=== PATIENT | female | born 1965 | race Caucasian/White ===

== ENCOUNTER → 2018-02-10 11:43 | Outpatient (CLI) | payer OTHER, SELFPAY ==
[2018-02-10 14:00] LABS: Cholesterol 139 mg/dL (200); High Density Lipoprotein 42 mg/dL; Triglycerides 183 mg/dL; Very Low Density Lipoprotein 37 mg/dL (5-40)
[2018-02-10 14:06] LABS: Hemoglobin A1c 8.2 % (4.2-6.3)
== END ==
PROVIDERS: Family Provider Family Medicine; PCP Family Medicine; Visit Provider Family Medicine
DX: E11.9 Type 2 diabetes mellitus without complications (principal); E78.00 Pure hypercholesterolemia, unspecified
CPT/HCPCS: 36415; 80061; 83036

== ENCOUNTER → 2019-03-25 10:42 | Outpatient (CLI) | payer OTHER, SELFPAY ==
[2019-03-25 09:59] VITALS: BMI 30.4
[2019-03-25 13:17] LABS: AST(SGOT) 43 U/L (15-37); Alanine Aminotransfer ALT/SGPT 59 U/L (13-56); Albumin, Serum 4.2 g/dL (3.2-5.0); Alkaline Phosphatase 82 U/L (45-117); Anion Gap 4 (5-15); BUN 9 mg/dL (7-18); BUN/Creat Ratio 10.5 RATIO (10-20); Calcium,Total 9.6 mg/dL (8.5-10.1); Chloride 103 mmol/L (98-107); Cholesterol 132 mg/dL (200); Creatinine, Serum 0.86 mg/dL (0.55-1.02); EST Glomerular Filtration Rate 73 mL/min (>60); Est Glom Filt Rate - Afr Amer 88 mL/min (>60); Glucose 184 mg/dL (74-106); High Density Lipoprotein 41 mg/dL; Potassium 4.3 mmol/L (3.5-5.1); Protein, Total 8.2 g/dL (6.4-8.2); Sodium Level 138 mmol/L (136-145); Triglycerides 191 mg/dL; Very Low Density Lipoprotein 38 mg/dL (5-40)
[2019-03-25 13:21] LABS: Microalbumin,Random Urine 10.4 mg/L (NO RANGE EST.); Microalbumin:Creatinine Ratio 32.7 mg/g CRE (<30 mg/g CRE)
== END ==
PROVIDERS: Family Provider Family Medicine; PCP Family Medicine; Visit Provider Family Medicine
DX: I10 Essential (primary) hypertension (principal); E78.00 Pure hypercholesterolemia, unspecified; E11.9 Type 2 diabetes mellitus without complications
CPT/HCPCS: 36415; 80053; 80061; 82043; 82570

== ENCOUNTER → 2020-05-11 16:12 | Outpatient (CLI) | payer OTHER, SELFPAY ==
[2020-05-11 15:39] VITALS: BMI 30.1
[2020-05-11 17:32] LABS: ALB/GLOB Ratio 1.1 RATIO (0.9-2.4); AST(SGOT) 47 U/L (15-37); Alanine Aminotransfer ALT/SGPT 75 U/L (13-56); Albumin, Serum 4.2 g/dL (3.2-5.0); Alkaline Phosphatase 69 U/L (45-117); Anion Gap 10 (5-15); BUN 9 mg/dL (7-18); BUN/Creat Ratio 12.3 RATIO (10-20); Calcium,Total 9.6 mg/dL (8.5-10.1); Chloride 101 mmol/L (98-107); Cholesterol 165 mg/dL (200); Creatinine, Serum 0.73 mg/dL (0.55-1.02); EST Glomerular Filtration Rate 88 mL/min (>60); Est Glom Filt Rate - Afr Amer 106 mL/min (>60); Globulin 3.8 g/dL (2.2-4.2); Glucose 157 mg/dL (74-106); High Density Lipoprotein 46 mg/dL; Sodium Level 140 mmol/L (136-145); Triglycerides 208 mg/dL; Very Low Density Lipoprotein 42 mg/dL (5-40)
[2020-05-11 18:09] LABS: Microalbumin,Random Urine 17.7 mg/L (NO RANGE EST.); Microalbumin:Creatinine Ratio 33.8 mg/g CRE (<30 mg/g CRE)
== END ==
PROVIDERS: PCP Family Medicine; Referring Provider Family Medicine; Visit Provider Family Medicine
DX: I10 Essential (primary) hypertension (principal)
CPT/HCPCS: 36415; 80053; 80061; 82043; 82570

== ENCOUNTER → 2020-08-01 09:11 | Outpatient (CLI) | payer OTHER, SELFPAY ==
[2020-05-11 15:39] VITALS: BMI 30.1
--- NOTE | 2020-08-01 09:13 | US_ITS ---
STUDY: ABDOMINAL ULTRASOUND - RIGHT UPPER QUADRANT REASON FOR VISIT: Female, 55 years old patient with elevated liver enzymes. TECHNIQUE: Ultrasound evaluation of the right upper quadrant was performed with real-time and static gonzalez-scale imaging. TECHNICAL QUALITY: Adequate. COMPARISON: Prior comparison studies are not available for review at this time. FINDINGS: Liver: The liver measures 18.8 cm. There is increased echogenicity consistent with fatty infiltration. The bile ducts are within normal limits. There is hepatic color flow. The direction of portal flow is hepatopetal. There is no demonstrated mass lesion. Gallbladder: Normal distended gallbladder. The gallbladder wall measures mm. There is a negative sonographic Lee''s sign. There is no pericholecystic fluid. There are no gallstones. Common Bile Duct (C.B.D.): The common bile duct measures 5 mm. Pancreas: Normal size of the head, body and tail of the pancreas. There is normal echogenicity of the pancreas. There is no demonstrated pancreatic mass or cyst. Right Kidney: Normal size of the right kidney. The right kidney measures 10.3 x 5.1 x 6.2 cm. Normal renal cortex. The right cortex measures 1.6 cm. There is no demonstrated renal mass or cyst. There is no right hydronephrosis. US/Liver IMPRESSION: 1. Echogenic liver suggests possible hepatic steatosis. 2. Common bile duct is at the upper limits of normal. Electronically Signed: Kenya Bautista MD at 2:14 EST , Service support ,
== END ==
PROVIDERS: PCP Family Medicine; Referring Provider Family Medicine; Visit Provider Family Medicine
DX: R74.8 Abnormal levels of other serum enzymes (principal)
CPT/HCPCS: 76705

== ENCOUNTER → 2022-01-23 | Outpatient (CLI) | payer OTHER, SELFPAY ==
[2022-01-23 15:37] LABS: ALB/GLOB Ratio 1.1 RATIO (0.9-2.4); AST(SGOT) 37 U/L (15-37); Alanine Aminotransfer ALT/SGPT 56 U/L (13-56); Albumin, Serum 4.1 g/dL (3.2-5.0); Alkaline Phosphatase 63 U/L (45-117); Anion Gap 10 (5-15); BUN 9 mg/dL (7-18); BUN/Creat Ratio 11.9 RATIO (10-20); Calcium,Total 9.9 mg/dL (8.5-10.1); Chloride 104 mmol/L (98-107); Cholesterol 164 mg/dL (200); Creatinine, Serum 0.76 mg/dL (0.55-1.02); EST Glomerular Filtration Rate 83 mL/min (>60); Est Glom Filt Rate - Afr Amer 101 mL/min (>60); Globulin 3.9 g/dL (2.2-4.2); Glucose 156 mg/dL (74-106); High Density Lipoprotein 41 mg/dL; Potassium 3.6 mmol/L (3.5-5.1); Sodium Level 141 mmol/L (136-145); Triglycerides 278 mg/dL; Very Low Density Lipoprotein 56 mg/dL (5-40)
[2022-01-23 15:44] LABS: Creatinine, Urine (random) < 13.00 mg/dL (NO RANGE EST.); Microalbumin,Random Urine 7.1 mg/L (NO RANGE EST.)
== END | disposition home or self-care (01) ==
LOC: BIMLAB 13:43
PROVIDERS: PCP Family Medicine; Visit Provider Family Medicine
DX: E78.00 Pure hypercholesterolemia, unspecified (principal); E11.9 Type 2 diabetes mellitus without complications
CPT/HCPCS: 36415; 80053; 80061; 82043; 82570

== ENCOUNTER 2022-07-22 11:57 | Emergency (ER) | payer OTHER, SELFPAY ==
[2022-07-22 11:58] VITALS: BP 188/70; PULSE 100; RESP 18; TEMP 36.4; O2SAT 98; BMI 28.8
--- NOTE | 2022-07-22 12:27 | RAD_ITS ---
STUDY: X-RAY - RIGHT SHOULDER REASON FOR EXAM: Female, 57 years old. fall, injury TECHNIQUE: 3 view(s) of the shoulder. COMPARISON: None. FINDINGS: Normal glenohumeral articulation. There is degenerative arthrosis of the acromioclavicular joint without inferior osseous spur formation. Normal acromion. Normal humeral head and visualized proximal humerus. The soft tissue structures are unremarkable. Normal visualized pulmonary apex. RAD/Shoulder min 2 Views IMPRESSION: Mild degenerative changes. There is no acute displaced fracture or dislocation. Electronically Signed: Quyen Danielle MD at 13:15 EST Reading Location ID and State: , Service support ,
--- NOTE | 2022-07-22 12:28 | EDS_ITS ---
HPI HPI - Fall History of Present Illness Chief Complaint: Fall Detail of Chief Complaint: Fall with right shoulder and right foot injury Informant: patient Narrative Narrative: Patient presents the emergency department after sustaining a fall this morning. Patient states that she was stepping out of the tub and try to avoid her cat when she missed the rug and stepped on the tile floor slipping causing her to f all. Patient fell onto her right shoulder and jammed her right foot and toes. Patient states she bumped her head on the tub but there is no loss of consciousness and she denies headache. She is not noticed any trauma to her head. She denies neck pain. She denies recent illness. Patient is left-hand dominant. [facility] Medical History (Updated 07/22/22 @ 14:[address] Peg Driver DO) Diabetes High blood pressure High cholesterol Sleep apnea Home Medications C-pap supplies #1 ea 06/04/18 [Rx Last Taken Unknown] blood sugar diagnostic (OneTouch Ultra Blue Test Strip) #50 ea 08/10/20 [Rx Last Taken Unknown] rosuvastatin 10 mg tablet 10 mg PO DAILY #90 tabs 09/29/21 [Rx Last Taken Unknown] amlodipine 5 mg-benazepril 20 mg capsule 1 cap PO DAILY blood pressure #90 caps 12/22/21 [Rx Last Taken Unknown] hydrochlorothiazide 12.5 mg tablet See Rx Instructions .Route .COMPLEX #90 tabs 01/23/22 [Rx Last Taken Unknown] sitagliptin phos 50 mg-metformin ER 1,000 mg tablet,extend rel 24h mp (Janumet XR) 2 tab PO DAILY #180 tabs 03/19/22 [Rx Last Taken Unknown] Allergy/AdvReac Type Severity Reaction Status Date / Time adhesive tape Allergy Intermediate Rash Verified 07/22/22 11:59 Family History Father Alcohol abuse Myocardial infarction Mother Breast cancer Colon cancer Hypertension Brother Heart disease Hypertension Surgical History History of appendectomy History of hysterectomy Social History Smoking Status: Never smoker alcohol intake: never substance use type: does not use what type of physical activity do you participate in: none ROS ROS ED Review of Systems ROS Unobtainable: other Constitutional Constitutional ED: Reports lethargy; Denies chills, fever(s), sweats or weight loss Eyes Eyes: Denies blurry vision, change in vision or diplopia ENT ENT ED: Denies rhinorrhea or sore throat Cardiovascular Cardiovascular: Denies chest pain, orthopnea or racing heartbeat Respiratory/Chest Respiratory/Chest: Denies cough, dyspnea, dyspnea on exertion, orthopnea or sputum Gastrointestinal Gastrointestinal: Denies abdominal pain, diarrhea, nausea or vomiting Genitourinary Genitourinary ED: Denies dysuria, hematuria or urinary frequency Musculoskeletal Musculoskeletal: Reports other Details: Right shoulder pain/injury, right foot pain/injury ; Denies arthralgias, back pain, myalgias or neck pain Integumentary Denies abscess, Abrasions or rash Neurologic Neurologic: Denies headache(s) or weakness Psychiatric Psychiatric: Denies anxiety, depression or suicidal thoughts Endocrine Endocrinology: Denies polydipsia, polyphagia or polyuria Hematologic/Lymphatic Hematologic/Lymphatic: Denies easy bleeding, easy bruising or lymphadenopathy Allergic/Immunologic Allergic/Immunologic ED: Denies mouth swelling, tongue swelling or urticaria EXAM Physical Exam Const Vital Signs: 07/22/22 11:58 07/22/22 12:11 Temperature 97.5 F L Temperature Source Temporal Pulse Rate 100 Respiratory Rate 18 Respiratory Effort Normal Non-Labored Blood Pressure 188/70 H Blood Pressure Mean 109 Pulse Ox 98 Oxygen Delivery Method Room Air Positive well nourished and well developed General Appearance ED: well developed and NAD HEENT Reports TM's clear and moist mucous membranes normocephalic and atraumatic; Negative for trauma or tenderness Tympanic Membrane ED: Yes TM's clear Eyes PERRL and EOMs intact bilaterally General Eye ED: Negative for pale conjunctiva or scleral icterus Neck no lymphadenopathy, supple and no JVD General: Negative for tenderness Chest Wall inspection of chest normal and palpation of chest normal Chest: Negative for tenderness Resp normal respiratory effort and clear to auscultation bilaterally Effort and Inspection: Negative for respiratory distress or pain with movement Auscultation: Negative for rhonchi, wheezes or diminished lung sounds Cardio regular rate, regular rhythm, S1 normal heart sound, S2 normal heart sound and no murmurs Peripheral Pulses: pulses 2+ throughout GI normal to inspection, nondistended, normoactive bowel sounds, soft to palpation, non-tender, non-distended and no masses Back/Spine no CVA tenderness and no thoracic nor lumbar tenderness Extremity Extremity Narrative: Right shoulder-no sulcus sign noted. There is no ecchymosis or bruising noted. Patient has pain with range of motion of the glenohumeral joint which is diminished. Patient has some tenderness palpation over the proximal humerus. Neurovascular intact distally. Right foot-patient has tenderness diffusely over the fourth and fifth toes and distal fourth and fifth metatarsals. There is no ecchymosis or bruising or obvious deformity. She is neurovascular intact. General Extremety ED: Negative for edema General Extremity: Negative for edema Neuro oriented x3, CN's II-XII intact bilaterally, no sensory deficits noted and gait normal Sensorium / Orientation: awake, alert, oriented to person, oriented to place and oriented to time Motor Exam: strength 5/5 throughout and strength abnormal Psych mental status grossly normal Skin no rashes or lesions noted and no wounds MDM MDM MDM Narrative Medical decision making narrative: Patient did not want thing for pain in the emergency department. Patient was given a sling. Patient advised to follow-up with her primary care physician 5 to 7 days. Radiography Diagnostic Testing: Clinical Impression(s) from Imaging Studies Shoulder X-Ray 07/22/22 12:27 IMPRESSION: Mild degenerative changes. There is no acute displaced fracture or dislocation. Electronically Signed: Quyen Danielle MD at 13:15 EST Reading Location ID and State: , Service support , Foot X-Ray 07/22/22 12:45 IMPRESSION: Degenerative changes. There is no acute displaced fracture or dislocation. Electronically Signed: Quyen Danielle MD at 13:14 EST Reading Location ID and State: , Service support , Three-view x-rays of right foot obtained interpreted by myself as no acute fractures. Radiology in agreement. 2 view x-rays of right shoulder obtained interpreted by myself as no acute fractures or dislocations and radiology in agreement. Discharge Plan Triage Chief Complaint: Fall ED Provider: Peg Driver Dx/Rx/DC Orders Clinical Impression: Fall, Contusion of right shoulder, Right foot sprain Instructions: ED Foot Sprain, ED Shoulder Contusion Prescriptions: No Action (DME) C-pap supplies Qty: 1 0RF Dose Instruction: As directed Rx Instructions: As directed (DME) OneTouch Ultra Blue Test Strip Strip See Rx Instructions .ROUTE .MEDSUPPLY Qty: 50 3RF Rx Instructions: Three times a day hydrochlorothiazide 12.5 mg tablet See Rx Instructions .ROUTE .COMPLEX Qty: 90 3RF Dose Instruction: take 1 tablet by mouth every morning Rx Instructions: take 1 tablet by mouth every morning rosuvastatin 10 mg tablet 10 mg PO DAILY Qty: 90 3RF amlodipine-benazepril 5-20 mg capsule 1 cap PO DAILY Qty: 90 3RF Janumet XR 50-1,000 mg tablet, ER multiphase 24 hr 2 tab PO DAILY Qty: 180 3RF Primary Care Provider: Stone Rosario Referrals: Stone Rosario, [Primary Care Provider] - 5-7 Days Disposition Disposition: Home, Self Care
--- NOTE | 2022-07-22 12:45 | RAD_ITS ---
STUDY: X-RAY - RIGHT FOOT CLINICAL: Female, 57 years old. fall TECHNIQUE: 3 view(s) of the foot. COMPARISON: None. FINDINGS: There is a large enthesophyte involving the posterior superior calcaneus at the site of insertion of the Achilles tendon and moderate plantar calcaneus spur formation. Mild arthropathy of the visualized subtalar, talonavicular, calcaneocuboid, tarsal and tarsometatarsal articulations. Normal metatarsi. Normal metatarsophalangeal joint of the great toe. Normal tibial and fibular sesamoid bones. Normal interphalangeal joint of the great toe. Normal phalanges of the great toe. Normal second through fifth metatarsophalangeal joints. Normal interphalangeal joints and phalanges of the lesser toes. The soft tissue structures are unremarkable. RAD/Foot min 3 Views IMPRESSION: Degenerative changes. There is no acute displaced fracture or dislocation. Electronically Signed: Quyen Danielle MD at 13:14 EST Reading Location ID and State: , Service support ,
== END 2022-07-22 14:50 | disposition home or self-care (01) ==
PROVIDERS: Emergency Provider Emergency Medicine; PCP Family Medicine; Visit Provider Emergency Medicine
DX: S40.011A Contusion of right shoulder, initial encounter (principal); S93.601A Unspecified sprain of right foot, initial encounter; G47.30 Sleep apnea, unspecified; W19.XXXA Unspecified fall, initial encounter
CPT/HCPCS: 73030; 73630; 99283

== ENCOUNTER 2023-02-20 11:30 | Outpatient (RCR) | payer OTHER, SELFPAY ==
--- NOTE | 2022-10-30 08:51 | HP.PTEVAL ---
Patient's Visit Information RHETT HAYNES is a 57 year old F referred to Physical Therapy by SREE TORO with a diagnosis of R RTC repair, biceps tenodesis, DOS: 08/29/22. Date of Evaluation: 10/24/22 Physical Therapist: Woody Ricketts DPT - Visit Plan Frequency: 2x /Week Duration: 6 Weeks Plan: Phase I and II only, PROM/ROM. No strength or resistance exercises currently. Work towards end range PROM and AROM as tolerated. - Subjective Pt. is here today for her initial evaluation with diagnosis of R shoulder RTC repair and biceps tenodesis. Pt. had surgery on 08/29/22. Pt. is now out of her sling. Pt. reports doing okay, but is still having some soreness. She has been doing some pendulums and elbow ROM at home. Pt. is sleeping okay, but does wake her up occasionally. Pt. reports having some pain that radiates into lateral arm, but overall doing okay. Pt. works at a local [employer] and has to lift heavier things from ground to occasionally over head. She is currently off work. Pt. is hopeful to increase her ROM and get back to all work and recreational activities without limtiations. - Pain R shoulder Pain Intensity (Out of 10): 3 Pain Intensity Range: 1, 7 - Objective POSTURE: Pt. has slight FH posture, rounded shoulders. R arm in slight guarded posture. PALPATION: Pt. has well healed incisions. No signs of infection. Pt. has mild tenderness along subacromial space. NEURO: normal throughout. ROM: R elbow: full without issues. R shoulder: PROM: flexion 135deg, abd 120deg, ER at side 30deg, AROM: flexion 90deg, abd 75deg, functional IR L5. MMT: LUE 5/5 throughout. RUE: DNT - Balance/Special Test Scores Quick DASH Score: 52.2725 - Goals Goal 1:: LTG: Pt. to be I with HEP. Goal Time Frame: 4-6 Weeks Goal 2:: LTG: Pt. to have full PROM of R shoulder without increase in symptoms. Goal Time Frame: 2-4 Weeks Goal 3:: LTG: Pt. to have full AROM of R shoulder without increase in symptoms. Goal Time Frame: 4-6 Weeks Goal 4:: LTG: Pt. to sleep throughout the night without increase in R shoulder pain. Goal Time Frame: 2-4 Weeks - Rehabilitation Potential Physical Therapy Diagnosis: Pt. has signs and symptoms consistent with R RTC repair. Pt. is doing well. She has marked hypomobility, but was able to improve her motion with exercises. She would benefit from PT to work on both PROM and ROM as tolerated progressing towards end ranges. Rehabilitation Potential: Excellent - Anticipated Interventions Patient/Client Instruction: Educate patient on: Condition, Plan of Care, Risk Factors, Benefits of Fitness Program For the Purpose of:: To foster healthy habits, To improve decision making, To facilitate caregiver knowledge, To improve self management, To prevent re-injury, To improve ability to perform tasks related to life management Therapeutic Exercise to Include: Strength training, Power training, Endurance training, Postural training, Passive ROM, Active ROM, Scapular Strength/Stabilization For the Purpose of:: To decrease pain, To increase ROM, To improve nutrient delivery to tissue, To increase oxygenation perfusion, To improve muscle performance and motor function, To improve ability to perform ADL's, To improve health of tissue, To decrease soft tissue restriction, To increase flexibility/ROM Manual Therapy Techniques to Include: Mobilization, Passive ROM For the Purpose of:: To decrease pain, To decrease swelling/inflammation, To increase ROM, To improve nutrient delivery to tissue, To increase oxygenation perfusion TENS: Yes Cryotherapy (ice pack, ice massage): Yes Thermo therapy (hot pack): Yes For the Purpose of:: To decrease pain, To decrease swelling/inflammation, To increase ROM Thank you for the opportunity to evaluate your patient. For Medicare and Medicare HMO plans, please review the plan of care and approve it. It will need to be FAXED BACK to us at [phone] for Medicare purposes. For Medicare only, by signing this I certify the plan of care. Please let me know if there are questions or concerns regarding this plan of care. Physician Signature: Date:
--- NOTE | 2023-01-08 09:03 | HP.PTREVAL ---
SREE TORO, It has been my pleasure to treat RHETT HAYNES over the last 15 visits for R RTC repair, biceps tenodesis, DOS: 08/29/22. Please see the progress note below for an update on the physical therapy plan of care! 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 No pain, but noticeable fatigue after 3 days. Objective/Function: Pt. is doing well with her ROM and progressing with her strength. I am pleased her progress. She does have a slight shoulder hike with her R shoulder during abd, less so with flexion, but has improved. She continues to require more strengthening. Plan Plan: At this point in time. I am going to see her every other week to continue to progress strengthening. Balance/Gait/Functional tests - Balance/Special Test Scores Quick DASH Score: 18.1800 Goals Goal 1:: LTG: Pt. to be I with HEP. Goal Time Frame: 4-6 Weeks Goal Progress: Progressing Goal 2:: LTG: Pt. to have full PROM of R shoulder without increase in symptoms. Goal Time Frame: 2-4 Weeks Goal Progress: Goal Met Goal 3:: LTG: Pt. to have full AROM of R shoulder without increase in symptoms. Goal Time Frame: 4-6 Weeks Goal Progress: Goal Met Goal 4:: LTG: Pt. to sleep throughout the night without increase in R shoulder pain. Goal Time Frame: 2-4 Weeks Goal Progress: Goal Met Goal 5:: LTG: Pt. to have 5/5 strength of RUE. Goal Time Frame: 4-6 Weeks Goal Progress: Progressing Anticipated Interventions Patient/Client Instruction: Educate patient on: Condition, Plan of Care, Risk Factors, Benefits of Fitness Program For the Purpose of:: To foster healthy habits, To improve decision making, To facilitate caregiver knowledge, To improve self management, To prevent re-injury, To improve ability to perform tasks related to life management Therapeutic Exercise to Include: Strength training, Power training, Endurance training, Postural training, Passive ROM, Active ROM, Scapular Strength/Stabilization For the Purpose of:: To decrease pain, To increase ROM, To improve nutrient delivery to tissue, To increase oxygenation perfusion, To improve muscle performance and motor function, To improve ability to perform ADL's, To improve health of tissue, To decrease soft tissue restriction, To increase flexibility/ROM Manual Therapy Techniques to Include: Mobilization, Passive ROM For the Purpose of:: To decrease pain, To decrease swelling/inflammation, To increase ROM, To improve nutrient delivery to tissue, To increase oxygenation perfusion TENS: Yes Cryotherapy (ice pack, ice massage): Yes Thermo therapy (hot pack): Yes For the Purpose of:: To decrease pain, To decrease swelling/inflammation, To increase ROM Please do not hesitate to contact me at [phone] by phone or if you have questions or concerns regarding this new plan of care! Sincerely, Woody Ricketts, KARINT
--- NOTE | 2023-02-20 14:06 | HP.PTDCSUM ---
Discharge Summary D/C summary: It has been my pleasure to treat RHETT HAYNES referred by SREE TORO, with the diagnosis of R RTC repair, biceps tenodesis, DOS: 08/29/22 for a total of 17 visit(s). Discharge Date: 02/20/23 Please see the following information for a summary of their discharge status. Subjective Subjective: Pt. reports overall doing well. She is back to a lot of her work activities. Pt. reports no pain currently. Pain R shoulder: Pain Intensity (Out of 10): 0 Overall Improvement % Improvement: 95 Objective Objective/Function: ROM: AROM: flexion 170deg, abd 165deg, functional ER C5, functional IR L2. MMT: Pt. is ~75% strength from R to L. Pt. has no pain. She has improved alot with her strength and active use of her R shoulder recently. Pt. has decreased R shoulder shrug with R shoulder elevation this date. She is back to working doing most activities, but is still limiting her lifting. Pt. is pleased with her progress. Pt. will be DC to HEP at this point in time. Goals Goal 1:: LTG: Pt. to be I with HEP. Goal Progress: Goal Met Goal 2:: LTG: Pt. to have full PROM of R shoulder without increase in symptoms. Goal Progress: Goal Met Goal 3:: LTG: Pt. to have full AROM of R shoulder without increase in symptoms. Goal Progress: Goal Met Goal 4:: LTG: Pt. to sleep throughout the night without increase in R shoulder pain. Goal Progress: Goal Met Goal 5:: LTG: Pt. to have 5/5 strength of RUE. Goal Progress: Progressing Plan Plan: Pt. to be DC from PT at this point in time to HEP. D/C Information Discharge Comments: Pt. was treated with ROM then strengthening progressing to I HEP program. Pt. to be DC from PT at this point in time. d/c sentence: If there are questions or concerns regarding this patient's physical therapy, please feel free to call me at [phone]. Thank you for the referral of this patient. Sincerely, Woody River Sipos, DPT Balance/Gait/Functional tests Balance/Special Test Scores Quick DASH Score: 7.5000
== END 2023-02-20 19:00 | disposition home or self-care (01) ==
LOC: PT 11:30
PROVIDERS: PCP Family Medicine
DX: S46.091D Other injury of muscle(s) and tendon(s) of the rotator cuff of right shoulder, subsequent encounter (principal)
CPT/HCPCS: 97110; 97161; 97164

== ENCOUNTER → 2024-03-11 | Outpatient (CLI) | payer OTHER, SELFPAY ==
[2024-03-11 18:19] LABS: ALB/GLOB Ratio 1.2 RATIO (0.9-2.4); AST(SGOT) 27 U/L (15-37); Alanine Aminotransfer ALT/SGPT 43 U/L (13-56); Albumin, Serum 4.2 g/dL (3.2-5.0); Alkaline Phosphatase 76 U/L (45-117); Anion Gap 8 (5-15); BUN 10 mg/dL (7-18); BUN/Creat Ratio 13.5 RATIO (10-20); Calcium,Total 9.7 mg/dL (8.5-10.1); Chloride 104 mmol/L (98-107); Cholesterol 154 mg/dL (200); Creatinine, Serum 0.74 mg/dL (0.55-1.02); EST Glomerular Filtration Rate 85 mL/min (>60); Est Glom Filt Rate - Afr Amer 103 mL/min (>60); Globulin 3.4 g/dL (2.2-4.2); Glucose 166 mg/dL (74-106); High Density Lipoprotein 46 mg/dL; Potassium 4.2 mmol/L (3.5-5.1); Protein, Total 7.6 g/dL (6.4-8.2); Sodium Level 139 mmol/L (136-145); Triglycerides 248 mg/dL; Very Low Density Lipoprotein 50 mg/dL (5-40)
== END | disposition home or self-care (01) ==
LOC: BIMLAB 16:07
PROVIDERS: PCP Family Medicine; Referring Provider Family Medicine; Visit Provider Family Medicine
DX: E11.9 Type 2 diabetes mellitus without complications (principal)
CPT/HCPCS: 36415; 80053; 80061

== ENCOUNTER → 2024-10-28 | Outpatient (CLI) | payer OTHER, SELFPAY ==
[2024-10-28 17:02] LABS: ALB/GLOB Ratio 1.6 RATIO (0.9-2.4); AST(SGOT) 29 U/L (<=31); Alanine Aminotransfer ALT/SGPT 33 U/L (<=34); Albumin, Serum 4.6 g/dL (3.4-4.8); Alkaline Phosphatase 66 U/L (35-104); Anion Gap 13 (5-15); BUN 16 mg/dL (4-19); BUN/Creat Ratio 23.5 RATIO (10-20); Calcium,Total 9.8 mg/dL (7.6-11.0); Carbon Dioxide 25.2 mmol/L (21.0-32.0); Chloride 101 mmol/L (98-108); Cholesterol 156 mg/dL (<=200); Creatinine, Serum 0.67 mg/dL (0.70-1.20); EST Glomerular Filtration Rate 99 (>60); Globulin 2.9 g/dL (2.2-4.2); Glucose 111 mg/dL (70-99); High Density Lipoprotein 52 mg/dL; Low Density Lipoprotein Calc. 52 mg/dL; Potassium 4.3 mmol/L (3.3-5.1); Protein, Total 7.5 g/dL (5.9-8.4); Sodium Level 139 mmol/L (133-145); Total Bilirubin 1.19 mg/dL (0.00-1.30); Triglycerides 261 mg/dL; Very Low Density Lipoprotein 52 mg/dL (5-40)
== END | disposition home or self-care (01) ==
LOC: BIMLAB 15:45
PROVIDERS: PCP Family Medicine; Referring Provider Family Medicine; Visit Provider Family Medicine
DX: I10 Essential (primary) hypertension (principal); E11.9 Type 2 diabetes mellitus without complications
CPT/HCPCS: 36415; 80053; 80061